=== PATIENT | male | born 1995 | race Caucasian/White ===

== ENCOUNTER 2018-03-28 09:43 | Emergency (ER) | payer BC, OTHER ==
[2018-03-28 09:53] VITALS: BP 141/93
--- NOTE | 2018-03-28 10:16 | UC ---
Dental HPI - HPI Summary HPI Summary: 23-year-old male comes to clinic today with chief complaint of dental pain. Tells me he's been having dental pain for several years. He only recently got insurance. He tells me went to a dentist this morning and they were planning on doing a dental cleaning but he was afraid of having that the cleaning because of the amount of pain that he's been having due to dental abscesses. So he left the dentist and came here. Reports that ibuprofen does not help with the pain. Reports she's had amoxicillin in the past which helped somewhat but the abscess is never really go away. Topicals DO help with pain briefly. - History of Current Complaint Chief Complaint: UCDentalProblem Stated Complaint: DENTAL Time Seen by Provider: 03/28/18 10:02 Pain Intensity: 10 - Allergies/Home Medications Allergies/Adverse Reactions: Allergies Allergy/AdvReac Type Severity Reaction Status Date / Time No Known Allergies Allergy Verified 03/28/18 09:53 PMH/Surg Hx/FS Hx/Imm Hx Previously Healthy: Yes Psychological History: Anxiety - Surgical History Surgical History: None - Family History Known Family History: Positive: Non-Contributory - Social History Alcohol Use: None Substance Use Type: None Smoking Status (MU): Never Smoked Tobacco Review of Systems All Other Systems Reviewed And Are Negative: Yes Constitutional: Positive: Negative Skin: Positive: Negative Eyes: Positive: Negative ENT: Positive: Dental Pain Respiratory: Positive: Negative Cardiovascular: Positive: Negative Gastrointestinal: Positive: Negative Motor: Positive: Negative Neurovascular: Positive: Negative Musculoskeletal: Positive: Negative Neurological: Positive: Negative Psychological: Positive: Anxious Is Patient Immunocompromised?: No Physical Exam Triage Information Reviewed: Yes Appearance: Well-Appearing, Well-Nourished, Pain Distress - MILD Vital Signs: Initial Vital Signs Temp 99 F 03/28/18 09:49 Pulse 76 03/28/18 09:49 Resp 16 03/28/18 09:49 BP 141/93 03/28/18 09:49 Pulse Ox 100 03/28/18 09:49 Vital Signs Reviewed: Yes Eye Exam: Normal Eyes: Positive: Conjunctiva Clear ENT: Positive: Pharynx normal. Negative: Nasal drainage Dental: Positive: Abscess @ - RIGHT AND LEFT UPPER GUMS. B/L CARIES UPPER AND LOWER MOLARS Neck exam: Normal Neck: Positive: Supple Respiratory: Positive: No respiratory distress Musculoskeletal Exam: Normal Musculoskeletal: Positive: Strength Intact, ROM Intact Neurological Exam: Normal Neurological: Positive: Alert, Muscle Tone Normal Psychological Exam: Normal Psychological: Positive: Age Appropriate Behavior Skin Exam: Normal Dental Complaint Course/Dx - Differential Dx/Diagnosis Provider Diagnosis: Dental abscess Discharge - Sign-Out/Discharge Documenting (check all that apply): Patient Departure All imaging exams completed and their final reports reviewed: No Studies - Discharge Plan Condition: Stable Disposition: HOME Prescriptions: Clindamycin Cap(NF) [Clindamycin Cap 300 mg Cap(NF)] 300 mg PO Q6H #40 cap HYDROcodone/ACETAMIN 5-325 MG* [Farwell 5-325 TAB*] 1 tab PO Q4H PRN #10 tab MDD 6 PRN Reason: Pain Patient Education Materials: Dental Abscess (ED) Referrals: [facility] [Outside] Additional Instructions: FOLLOW UP WITH YOUR DENTIST. GET RECHECKED FOR ANY WORSENING OF YOUR CONDITION OR QUESTIONS OR CONCERNS. - Billing Disposition and Condition Condition: STABLE Disposition: Home
== END 2018-03-28 10:36 | disposition home or self-care (01) ==
LOC: UCEAST 09:43
DX: K04.7 Periapical abscess without sinus (principal)
CPT/HCPCS: 99212; G0463

== ENCOUNTER 2018-04-04 11:10 | Emergency (ER) | payer OTHER ==
--- NOTE | 2018-04-04 11:18 | UC ---
Dental HPI - HPI Summary HPI Summary: 23 yo male presents with dental pain. He tells me that for the past year or so he has had issues with abscesses in his upper teeth. Recently these became increasingly large and painful. Feels that they "burst" inside. He went to his dentist who did an XR and referred him to an oral surgeon. She placed him on clindamycin and norco - he has finished the norco and said that it only helped for about an hour and is having trouble sleeping and eating due to pain. He tells me that he has an appt on 04/06 to see the oral surgeon. Denies fever, chills. - History of Current Complaint Stated Complaint: DENTAL PAIN Time Seen by Provider: 04/04/18 11:18 Hx Obtained From: Patient Onset/Duration: Gradual Onset Severity: Severe Pain Intensity: 10 Pain Scale Used: 0-10 Numeric - Allergies/Home Medications Allergies/Adverse Reactions: Allergies Allergy/AdvReac Type Severity Reaction Status Date / Time No Known Allergies Allergy Verified 04/04/18 11:25 Home Medications: Home Medications Ibuprofen TAB* [Advil TAB*] 600 mg PO Q6H PRN 04/04/18 [History Confirmed ] PMH/Surg Hx/FS Hx/Imm Hx Psychological History: Anxiety, Depression - Surgical History Surgical History: None - Family History Known Family History: Positive: Non-Contributory - Social History Lives: With Family Alcohol Use: None Substance Use Type: None Smoking Status (MU): Never Smoked Tobacco Review of Systems All Other Systems Reviewed And Are Negative: Yes Constitutional: Positive: Negative Skin: Positive: Negative Eyes: Positive: Negative ENT: Positive: Dental Pain Respiratory: Positive: Negative Cardiovascular: Positive: Negative Gastrointestinal: Positive: Negative Neurovascular: Positive: Negative Neurological: Positive: Negative Psychological: Positive: Negative Physical Exam - Summary Physical Exam Summary: GENERAL: NAD. WDWN. No pain distress. NECK: Supple. Nontender. No lymphadenopathy. CHEST: No accessory muscle use. Breathing comfortably and in no distress. CV: Pulses intact. Cap refill <2seconds NEURO: Alert. PSYCH: Age appropriate behavior. Triage Information Reviewed: Yes Vital Signs: Vital Signs: Temp Pulse Resp BP Pulse Ox 97.8 F 72 16 140/80 100 04/04/18 11:18 04/04/18 11:18 04/04/18 11:18 04/04/18 11:18 04/04/18 11:18 Vital Signs Reviewed: Yes ENT: Positive: Sinus tenderness - maxillary Dental: Positive: Percussion Tenderness @ - Tooth #6 and #11, Gross Decay/ Caries @ - throughout, Abscess @ - Tooth #6 and #11. Negative: Cervical Lymphadenopathy, Bleeding Dental Complaint Course/Dx - Course Course Of Treatment: iSTOP: Reference #: [id number]. Appt on 04/06 with oral surgeon. Will give him a 3 day supply of percocet and lidocaine viscous. Advised to keep appt with oral surgeon for further management. - Differential Dx/Diagnosis Provider Diagnosis: Dental abscess Discharge - Sign-Out/Discharge Documenting (check all that apply): Patient Departure All imaging exams completed and their final reports reviewed: No Studies - Discharge Plan Condition: Stable Disposition: HOME Prescriptions: Lidocaine 2% VISCOUS* [Xylocaine 2% Viscous*] 15 ml SWISH SPIT Q4H PRN #250 ml PRN Reason: Pain oxyCODONE/Acetamin 5/325 MG* [Percocet 5/325 TAB*] 1 tab PO Q6H PRN #10 tab MDD 4 PRN Reason: Pain Patient Education Materials: Dental Abscess (ED) Referrals: No Primary Care Phys,NOPCP [Primary Care Provider] - Additional Instructions: If you develop a fever, shortness of breath, chest pain, new or worsening symptoms - please call your PCP or go to the ED. Your blood pressure was mildly elevated at todays visit. Please see your primary provider within 4 weeks for recheck and re-evaluation. 1) Please keep your appointment with your oral surgeon for 04/06/18 for further treatment of your dental problems - Billing Disposition and Condition Condition: STABLE Disposition: Home - Attestation Statements Provider Attestation: I was available for consult. This patient was seen by the ABDIEL. The patient was not presented to, seen by, or examined by me. -Tru
[2018-04-04 11:29] VITALS: BP 140/80
== END 2018-04-04 11:52 | disposition home or self-care (01) ==
LOC: UCEAST 11:10
DX: K04.7 Periapical abscess without sinus (principal)
CPT/HCPCS: 99212; G0463

== ENCOUNTER 2018-09-20 07:16 | Emergency (ER) | payer OTHER ==
--- NOTE | 2018-09-20 08:32 | UC ---
Dental HPI - HPI Summary HPI Summary: PATIENT WITH LONG-STANDING HISTORY OF POOR DENTITION COMES IN CONCERNED ABOUT MULTIPLE TOOTH INFECTIONS. STATES HE SAW HIS NEW PCP YESTERDAY AND FELT THEY WERE NOT HELPFUL. IS COMPLAINING OF INCREASING PAIN AND CHILLS. HAVING DIFFICULTY EATING. HE DOES NOT HAVE A DENTIST. - History of Current Complaint Chief Complaint: UCDentalProblem Stated Complaint: TOOTH PAIN Time Seen by Provider: 09/20/18 08:17 Hx Obtained From: Patient Onset/Duration: Gradual Onset, Lasting Days, Still Present Severity: Severe Pain Intensity: 10 Pain Scale Used: 0-10 Numeric Aggravating Factor(s): Heat, Cold, Chewing Alleviating Factor(s): Nothing Related History: Swelling - Allergies/Home Medications Allergies/Adverse Reactions: Allergies Allergy/AdvReac Type Severity Reaction Status Date / Time No Known Allergies Allergy Verified 09/20/18 07:32 Home Medications: Home Medications Amitriptyline TAB* [Elavil TAB*] 25 mg PO BEDTIME 09/20/18 [History Confirmed ] Escitalopram * [Lexapro 10 mg (NF)] 10 mg PO DAILY 09/20/18 [History Confirmed 09/20/18] PMH/Surg Hx/FS Hx/Imm Hx Psychological History: Anxiety, Depression Other Psychological History: ADHD - Surgical History Surgical History: None - Family History Known Family History: Positive: Non-Contributory - Social History Alcohol Use: None Substance Use Type: None Smoking Status (MU): Former Smoker Review of Systems All Other Systems Reviewed And Are Negative: Yes Constitutional: Positive: Chills ENT: Positive: Dental Pain Respiratory: Positive: Negative Cardiovascular: Positive: Negative Gastrointestinal: Positive: Negative Physical Exam Triage Information Reviewed: Yes Appearance: Well-Appearing, Well-Nourished, Pain Distress - MOD Vital Signs: Initial Vital Signs Temp 98.5 F 09/20/18 07:26 Pulse 70 09/20/18 07:26 Resp 18 09/20/18 07:26 BP 162/96 09/20/18 07:26 Pulse Ox 98 09/20/18 07:26 Vital Signs Reviewed: Yes Eyes: Positive: Conjunctiva Clear ENT: Positive: Hearing grossly normal, Pharynx normal Dental: Positive: Gross Decay/Caries @ Neck: Positive: Supple, Nontender, No Lymphadenopathy Respiratory: Positive: No respiratory distress, No accessory muscle use Cardiovascular: Positive: Pulses Normal Abdomen Description: Positive: Soft Musculoskeletal: Positive: No Edema Neurological: Positive: Alert Psychological: Positive: Age Appropriate Behavior Skin: Negative: Rashes Dental Complaint Course/Dx - Course Course Of Treatment: PATIENT WITH MULTIPLE CARIES AND GROSS DECAY IN HIS MOLARS. WILL COVER FOR INFECTION WITH AUGMENTIN TWICE DAILY FOR 10 DAYS. PERIDEX MOUTH RINSE. ADVISED OTC MEDICATIONS FOR PAIN AND WILL PROVIDE A SMALL AMOUNT OF HYDROCODONE FOR BREAKTHROUGH. LIST OF LOW-COST/NO-COST DENTISTS PROVIDED. PATIENT INSTRUCTED TO CALL TODAY TO SCHEDULE AN APPOINTMENT FOR FOLLOW-UP. [facility] #[id number] - Differential Dx/Diagnosis Provider Diagnosis: Dental decay, Dental infection Discharge - Sign-Out/Discharge Documenting (check all that apply): Patient Departure All imaging exams completed and their final reports reviewed: No Studies - Discharge Plan Condition: Stable Disposition: HOME Prescriptions: Amoxicillin/Clavulanate TAB* [Augmentin TAB 875*] 875 mg PO BID #20 tab Chlorhexidine MW 0.12% 473ML* [Peridex Mouth Wash 0.12%*] 15 ml SWISH SPIT BID # 1 bottle HYDROcodone/ACETAMIN 5-325 MG* [Ethan 5-325 TAB*] 1 tab PO Q6H PRN #15 tab MDD 4 PRN Reason: Pain Patient Education Materials: Toothache (ED) Referrals: No Primary Care Phys,NOPCP [Primary Care Provider] - Additional Instructions: TAKE THE ANTIBIOTICS FOR THE FULL COURSE. RINSE YOUR MOUTH WITH WATER AFTER EATING OR DRINKING ANYTHING. ANTISEPTIC MOUTH RINSE TWICE DAILY. OTC MEDS NEEDED FOR DISCOMFORT. FOLLOW-UP WITH A DENTIST BENY. OTC MEDS FOR PAIN. HYDROCODONE FOR BREAKTHROUGH. IBUPROFEN MAX DOSE: 600MG (3 TABS) EVERY 6 HRS OR 800MG (4 TABS) EVERY 8 HRS OR NAPROXEN MAX DOSE: 440MG (2 TABS) EVERY 12 HRS TYLENOL MAX DOSE: 1000MG (2 EXTRA STRENGTH TABS) EVERY 8 HRS OR 650MG (2 REGULAR TABS) EVERY 6 HRS DENTISTS Mat Moody [place] & Geovanna. DDS Dentist Office [address], [place] [address]l Duvall, [address], [place] [address] Clarence Mcdonough D.D.S. [address], [place] [address] Opens at 8am YOUR BLOOD PRESSURE WAS ELEVATED TODAY (156/97). THIS MAY BE DUE TO YOUR ACUTE CONDITION. MONITOR AND FOLLOW-UP WITH YOUR PCP WITHIN 4 WEEKS IF IT HAS NOT RETURNED TO NORMAL. CALL THE NUMBER BELOW FOR ASSISTANCE IN ESTABLISHING WITH A PCP An additional resource available to assist in finding the appropriate physician for your health care needs is the [facility] ([facility]). You may contact them by calling [phone]. - Billing Disposition and Condition Condition: STABLE Disposition: Home
[2018-09-20 08:46] VITALS: BP 156/97
== END 2018-09-20 08:54 | disposition home or self-care (01) ==
LOC: UCEAST 07:16
DX: K02.9 Dental caries, unspecified (principal); K04.7 Periapical abscess without sinus; F41.8 Other specified anxiety disorders; F90.9 Attention-deficit hyperactivity disorder, unspecified type
CPT/HCPCS: 99212; G0463